=== PATIENT | female | born 1975 | race Caucasian/White ===

== ENCOUNTER 2018-05-20 16:04 | Emergency (ER) | payer OTHER ==
--- OUTSIDE RECORDS SUMMARY | 2018-05-20 16:16 | XMS REPORT | Continuity of Care Document ---
:1975 External Reference #:[id number] Author Name Herikaci Kristan Care Team Providers Name Role Phone Jaida Bell FNP Primary Care Physician Unavailable Payers Type Date Identification Numbers Payment Provider Subscriber Policy Number: [id number] [employer] Group Number: [id number] [address] PayID: [id number] [place] [address] Advance Directives Description No Information Available Problems Date Description Provider Status Onset: 02/04/2018 Arthralgia of the pelvic region and thigh Val Leggett MD Active Onset: 02/04/2018 Lumbar radiculopathy Val Leggett MD Active Family History Date Family Member(s) Problem(s) Comments General Chronic Obstructive Pulmonary Disease (COPD) General Pancreatic Cancer General Fibromyalgia General Crohn's Disease Father Heart Disease Mother Cancer Social History Type Date Description Comments Sex Unknown Marital Status Lives With Occupation Currently Working [employer] Use Denies alcohol use Tobacco Use Start: Unknown Light tobacco smoker (10 or fewer cigarettes/day) Recreational Drug Use Sporadically uses Marijuana Smoking Status Reviewed: 04/28/18 Light tobacco smoker (10 or fewer cigarettes/day) Allergies, Adverse Reactions, Alerts Description No Known Drug Allergies Medications Medication Date Status Form Strength Qnty SIG Indications Ordering Provider Lorazepam Active Tablets 2mg 2tabs take one Tejinder 8 tablet 30 Zelda, minutes M.D. prior to mri, may repeat at time of mri. Meloxicam Hx Tablets 15mg 1 by mouth Unknown 0 - every day 9 Medications Administered in Office Medication Date Status Form Strength Qnty SIG Indications Ordering Provider Triamcinolone 02/04/ Administered Injection Val (Kenalog) 2017 MD Betsey Immunizations Description No Information Available Vital Signs Date Vital Result Comment 04/28/2018 3:35pm Height 65 inches 5'5" Weight 210.25 lb with shoes Heart Rate 60 /min left radial, regular BP Systolic Sitting 112 mmHg lt arm BP Diastolic Sitting 78 mmHg lt arm BMI (Body Mass Index) 35.0 kg/m2 02/22/2018 1:01pm Height 65 inches 5'5" Weight 200.00 lb BP Systolic Sitting 122 mmHg BP Diastolic Sitting 70 mmHg Pain Level 5 BMI (Body Mass Index) 33.3 kg/m2 02/04/2018 11:29am Heart Rate 68 /min BP Systolic 128 mmHg BP Diastolic 82 mmHg Body Temperature 97.7 F Pain Level 6 01/26/2018 1:03pm Height 65.5 inches 5'5.50" Weight 200.00 lb Heart Rate 68 /min BP Systolic 130 mmHg BP Diastolic 82 mmHg Respiratory Rate 16 /min Body Temperature 97.8 F Pain Level 7 BMI (Body Mass Index) 32.8 kg/m2 01/07/2018 10:25am Height 65.5 inches 5'5.50" Weight 200.00 lb BP Systolic Sitting 128 mmHg BP Diastolic Sitting 76 mmHg Respiratory Rate 16 /min Pain Level 8 can get worse with use BMI (Body Mass Index) 32.8 kg/m2 Results Description No Information Available Procedures Date Code Description Status 02/04/2018 Inj/Aspir Major JT Or Bursa W/ US Completed Encounters Type Date Location Provider Dx Diagnosis Office Visit 02/22/2018 [facility] M54.16 Radiculopathy, 1:00p [facility] PA-C lumbar region Office Visit 01/26/2018 Orthopedic Val Leggett MD M25.552 Pain in left hip 1:00[facility] M24.852 Oth specific joint derangements of left hip, NEC M54.16 Radiculopathy, lumbar region Office Visit 01/07/2018 10:15a [facility] Gavino Meyer M25.552 Pain in left Of [facility] AT [place] hip Plan of Treatment 04/28/2018 - GREGORY Downs-CM51.36 Other intervertebral disc degeneration, lumbar [id number] Pain in left legFollow up:after EMG
[2018-05-20 17:16] VITALS: BP 125/80
--- NOTE | 2018-05-20 17:37 | UC ---
Respiratory Complaint HPI - HPI Summary HPI Summary: 43 yo WF p/w cough congestion associated with bodyachesx 3 weeks, f/c now progressing to right ear pain. - History of Current Complaint Chief Complaint: UCGeneralIllness Stated Complaint: SORE THROAT/COLD Time Seen by Provider: 05/20/18 17:26 Hx Obtained From: Patient Hx Last Menstrual Period: 05/07/18 Onset/Duration: Sudden Onset Severity Initially: Moderate Severity Currently: Severe Pain Intensity: 6 Character: Cough: Productive - Allergies/Home Medications Allergies/Adverse Reactions: Allergies Allergy/AdvReac Type Severity Reaction Status Date / Time No Known Allergies Allergy Verified 05/20/18 17:16 PMH/Surg Hx/FS Hx/Imm Hx - Surgical History Surgical History: Yes Surgery Procedure, Year, and Place: TUBAL LIGATION;. COLONOSCOPY & ENDOSCOPY - POL[facility]PS - [facility] - Social History Alcohol Use: Rare Substance Use Type: None Smoking Status (MU): Light Every Day Tobacco Smoker Review of Systems All Other Systems Reviewed And Are Negative: Yes Constitutional: Positive: Negative Skin: Positive: Negative Eyes: Positive: Negative ENT: Positive: Sore Throat, Nasal Discharge, Sinus Congestion, Sinus Pain/ Tenderness Respiratory: Positive: Cough Cardiovascular: Positive: Negative Gastrointestinal: Positive: Negative Genitourinary: Positive: Negative Motor: Positive: Negative Neurovascular: Positive: Negative Musculoskeletal: Positive: Negative Neurological: Positive: Negative Psychological: Positive: Negative Physical Exam - Summary Physical Exam Summary: Eye Exam: Normal ENT Exam: Normal ENT: Positive: right TM erythema without effusion, right posterior auricular tenderness Dental Exam: Normal Neck exam: Normal Neck: Positive: 1 Respiratory: Positive: diffuse rhonchi with cough, no crackles Cardiovascular: Positive: RRR Abdominal Exam: Normal Abdomen Description: Positive: Nontender, Soft Musculoskeletal Exam: Normal Neurological Exam: Normal Psychological Exam: Normal Skin Exam: Normal Triage Information Reviewed: Yes Vital Signs: Initial Vital Signs Temp 37.3 C 05/20/18 17:12 Pulse 78 05/20/18 17:12 Resp 17 05/20/18 17:12 BP 125/80 05/20/18 17:12 Pulse Ox 97 05/20/18 17:12 UC Diagnostic Evaluation - Laboratory O2 Sat by Pulse Oximetry: 97 Respiratory Course/Dx - Course Course Of Treatment: viral syndrome progressing to right OM and bronchitis- Z- rosalie and continue supportive tx - Differential Dx/Diagnosis Provider Diagnosis: Right otitis media, Bronchitis Discharge - Sign-Out/Discharge Documenting (check all that apply): Patient Departure All imaging exams completed and their final reports reviewed: No Studies - Discharge Plan Condition: Stable Disposition: HOME Prescriptions: Azithromycin TAB* [Zithromax TAB (Z-ROSALIE) 250 mg #6 tabs] 2 tab PO .TODAY, THEN 1 DAILY #1 rosalie Patient Education Materials: Acute Bronchitis (ED) Referrals: Jaida Bell NP [Primary Care Provider] - - Billing Disposition and Condition Condition: STABLE Disposition: Home
== END 2018-05-20 18:05 | disposition home or self-care (01) ==
LOC: UCCORT 16:04
DX: H66.91 Otitis media, unspecified, right ear (principal); J40 Bronchitis, not specified as acute or chronic; F17.210 Nicotine dependence, cigarettes, uncomplicated
CPT/HCPCS: 99212; G0463